=== PATIENT | female | born 1965 | race Two or more races ===

== ENCOUNTER 2024-07-11 06:02 | Day surgery (SDC) | payer OTHER ==
[2024-07-05 11:58] VITALS: BP 120/73
[~2024-07-11] VITALS: Ht 167.6 cm; Wt 63.5 kg
[~2024-07-11 06:02] MED LIST: ATIVAN0.5 M1 PO; FIORECET; KEPPRA XR500 MG PO; KEPPRA1000 MG PO; PANADOL EXTRA500 MG PO; TOPROL XL50 M1 PO
[2024-07-11] MEDS ORDERED: BUPIVACAINE HCL 30 ML VIAL IJ ONE (14:45)
[2024-07-11] MEDS ORDERED: CLINDAMYCIN PHOSPHATE 150 MG/ML (900mg) IV ONE (14:45)
[2024-07-11] MEDS ORDERED: MORPHINE SULFATE 4 MG/ML VIAL IV ONE ×2 (16:10→17:10)
[2024-07-11] MEDS ORDERED: MORPHINE SULFATE 2 MG/ML CARTRIDGE IV ONE (16:10)
== END 2024-07-11 18:00 | disposition home or self-care (01) ==
LOC: CIR.AMB 06:02
PROVIDERS: ATTEND Orthopaedic Surgery Hand Surgery
DX: M18.12 Unilateral primary osteoarthritis of first carpometacarpal joint, left hand (principal); I10 Essential (primary) hypertension; J45.909 Unspecified asthma, uncomplicated; F41.9 Anxiety disorder, unspecified; F32.9 Major depressive disorder, single episode, unspecified

== ENCOUNTER 2025-05-08 07:22 | Outpatient (CLI) | payer OTHER | END 2025-05-08 07:23 | disposition home or self-care (01) | LOC: NUCLEAR 07:22 | PROVIDERS: ATTEND Internal Medicine | DX: I20.9 Angina pectoris, unspecified (principal) ==